=== PATIENT | female | born 1935 | race Caucasian/White ===

== ENCOUNTER 2017-11-11 07:19 | Emergency (ER) | payer MEDICARE, OTHER ==
[~2017-11-11] VITALS: Ht 160 cm; Wt 81.7 kg
[~2017-11-11 07:19] MED LIST: FUROSEMIDE80 MG PO; SYNTHROID200 MCG PO; TRAZODONE HCL50 MG PO
[2017-11-11] MEDS ORDERED: LEVOTHYROXINE150 MCG PO (07:41)
[2017-11-11] MEDS ORDERED: LANSOPRAZOLE30 MG PO (07:41)
[2017-11-11] MEDS ORDERED: POTASSIUM CHLO10 ME2 PO (07:42)
[2017-11-11] MEDS ORDERED: ISOSORBIDE MONO30 MG PO (07:42)
[2017-11-11] MEDS ORDERED: GABAPENTIN100 MG PO (07:43)
[2017-11-11] MEDS ORDERED: ATORVASTATIN CA40 MG PO (07:43)
[2017-11-11] MEDS ORDERED: ASPIR-LOW81 MG PO (07:44)
[2017-11-11] MEDS ORDERED: CIPRO250 MG PO (09:05)
--- NOTE | 2017-11-11 19:17 | EKG ---
[facility] [address] [facility] [place] [address] Signed Normal sinus rhythm Inferior infarct , age undetermined Cannot rule out Anterior infarct , age undetermined Abnormal ECG No previous ECGs available Confirmed by ANDREW MERAZ MD ([id number]) on 11/11/2017 7:17:22 PM Electronically Signed By: ANDREW MERAZ MD 11/11/17 1917 PATIENT NAME: ENMANUELHUDSON Electrocardiogram DATE OF : 37 PHYSICIAN: ANDREW MERAZ MD REPORT #: [id number] REPORT IS CONFIDENTIAL AND NOT TO BE RELEASED WITHOUT AUTHORIZATION
== END 2017-11-11 09:30 | disposition home or self-care (01) ==
LOC: ED 07:19
DX: N39.0 Urinary tract infection, site not specified (principal); E03.9 Hypothyroidism, unspecified; Z90.710 Acquired absence of both cervix and uterus; Z90.49 Acquired absence of other specified parts of digestive tract; Z79.899 Other long term (current) drug therapy
CPT/HCPCS: 70450; 80053; 81001; 84484; 85025; 93005; 93010; 99284

== ENCOUNTER 2017-11-21 11:28 | Emergency (ER) | payer MEDICARE, OTHER ==
[~2017-11-21] VITALS: Ht 160 cm; Wt 81.7 kg
[~2017-11-21 11:28] MED LIST changes: +ASPIR-LOW81 MG PO; +ATORVASTATIN CA40 MG PO; +CIPRO250 MG PO; +GABAPENTIN100 MG PO; +ISOSORBIDE MONO30 MG PO; +LANSOPRAZOLE30 MG PO; +LEVOTHYROXINE150 MCG PO; +POTASSIUM CHLO10 ME2 PO
[2017-11-21] MEDS ORDERED: BACTRIM DS TAB1 EACH PO (11:43)
--- NOTE | 2017-11-23 23:46 | EKG ---
[facility] [address] [facility] [place] [address] Signed Normal sinus rhythm Inferior infarct (cited on or before 11-NOV-2017) Cannot rule out Anterior infarct (cited on or before 11-NOV-2017) Abnormal ECG When compared with ECG of 11-NOV-2017 07:55, No significant change was found Confirmed by ANDREW MERAZ MD ([id number]) on 11/23/2017 11:46:48 PM Electronically Signed By: ANDREW MERAZ MD 11/23/17 2346 PATIENT NAME: HUDSON SINGER Electrocardiogram DATE OF : 37 PHYSICIAN: ANDREW MERAZ MD REPORT #: [id number] REPORT IS CONFIDENTIAL AND NOT TO BE RELEASED WITHOUT AUTHORIZATION
== END 2017-11-21 13:41 | disposition home or self-care (01) ==
LOC: ED 11:28
DX: S43.401A Unspecified sprain of right shoulder joint, initial encounter (principal); S00.31XA Abrasion of nose, initial encounter; E03.9 Hypothyroidism, unspecified; N18.4 Chronic kidney disease, stage 4 (severe); Z90.710 Acquired absence of both cervix and uterus; Z95.5 Presence of coronary angioplasty implant and graft; Z79.899 Other long term (current) drug therapy; Z79.82 Long term (current) use of aspirin; W01.10XA Fall on same level from slipping, tripping and stumbling with subsequent striking against unspecified object, initial encounter
CPT/HCPCS: 80053; 81001; 84484; 85025; 93005; 93010; 99283

== ENCOUNTER 2018-02-04 10:24 | Emergency (ER) | payer MEDICARE, OTHER ==
[~2018-02-04] VITALS: Ht 160 cm; Wt 81.7 kg
[~2018-02-04 10:24] MED LIST changes: +BACTRIM DS TAB1 EACH PO
--- NOTE | 2018-02-04 13:34 | EKG ---
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
[2018-02-04] MEDS ORDERED: OMEPRAZOLE20 MG PO (14:24)
== END 2018-02-04 14:35 | disposition home or self-care (01) ==
LOC: ED 10:24
DX: K21.9 Gastro-esophageal reflux disease without esophagitis (principal); R07.89 Other chest pain; N18.4 Chronic kidney disease, stage 4 (severe); I25.2 Old myocardial infarction; E03.9 Hypothyroidism, unspecified; Z79.899 Other long term (current) drug therapy; Z79.2 Long term (current) use of antibiotics; Z79.82 Long term (current) use of aspirin
CPT/HCPCS: 71046; 80053; 84484; 85025; 93005; 93010; 99284

== ENCOUNTER 2018-05-01 18:25 | Inpatient (IN) | payer MEDICARE, OTHER ==
[~2018-05-01] VITALS: Ht 160 cm; Wt 80.0 kg
[~2018-05-01 18:25] MED LIST changes: +OMEPRAZOLE20 MG PO
[2018-05-01] MEDS ORDERED: AMOXICILLIN500 MG PO (18:37)
[2018-05-01] MEDS ORDERED: ALLOPURINOL100 MG PO (18:38)
--- NOTE | 2018-05-01 20:54 | NUR ---
PT ARRIVED FROM ED VIA STRETCHER AND WAS ABLE TO MOVE OVER TO BED ON HER OWN. SHE IS ALERT AND ORIENTED AND RESPIRATIONS ARE EVEN AND NONLABORED ON RA. HER 1L BOLUS IS INFUSING AND SHE DENIES PAIN AT THIS TIME. IS WITH HER IN THE ROOM. PT WAS ORIENTED TO THE ROOM AND HAS CALL LIGHT WITHIN REACH.
--- NOTE | 2018-05-01 22:17 | NUR ---
PT IS RESTING IN BED WITH EYES CLOSED, RESPIRATIONS ARE EVEN AND NONLABORED. CALL LIGHT IS WITHIN REACH.
--- NOTE | 2018-05-01 23:48 | NUR ---
PT IS RESTING WITH EYES CLOSED, RESPIRATIONS ARE EVEN AND NONLABORED ON RA. CALL LIGHT IS WITHIN REACH.
--- NOTE | 2018-05-02 01:09 | NUR ---
PT IS RESTING WITH EYES CLOSED, RESPIRATIONS ARE EVEN AND NONLABORED. CALL LIGHT IS WITHIN REACH.
--- NOTE | 2018-05-02 02:04 | NUR ---
PT IS RESTING WITH EYES CLOSED. RESPIRATIONS ARE EVEN AND NONLABORED. CALL LIGHT IS WITHIN REACH.
--- NOTE | 2018-05-02 02:25 | NUR ---
WOKE PT TO GET VS AND HAVE HER USE THE RESTROOM. PT DENIES PAIN AND ANY NEEDS AT THIS TIME.
--- NOTE | 2018-05-02 05:15 | NUR ---
PT SLEPT WELL THROUGH THE NIGHT. SHE HAD NO COMPLAINTS OF PAIN. SHE AMBULATES WITH SBA AND FWW TO THE RESTROOM. SHE DID NOT HAVE ANY COMPLAINTS OF FEELING DIZZY WHILE AMBULATING. D5LR IS INFUSING AT 75 MLS/HR AND SHE IS VOIDING QS.
--- NOTE | 2018-05-02 06:52 | NUR ---
HELPED PT TO RESTROOM AND BACK TO BED. PT DENIES FURTHER NEEDS.
--- NOTE | 2018-05-02 07:40 | NUR ---
BEDSIDE REPORT FROM BIANKA HICKS, PT RESTING IN BED EYES CLOSED RR 18 EVEN. NO DISTRESS NOTED. PT APPEARS TO BE SLEEPING
--- NOTE | 2018-05-02 08:04 | NUR ---
PATIENT IN BED, I ASKED HER WHAT SHE WOULD LIKE FOR BREAKFAST, SHE ORDERED SOME TOAST AND A BANANA, PATIENT SAID SHE WOULD WAIT FOR BREAKFAST UNTIL SHE GOT UP.
--- NOTE | 2018-05-02 09:42 | NUR ---
UPDATED ON PT THIS AT THIS TIME. ORTHO V/S, AND LUNG SOUNDS FINE CRACKLES IN BASES AND AUDIBLE WHEEZES IN UPPER AIRWAY AFTER POSITIONED BACK TO BED
--- NOTE | 2018-05-02 09:48 | NUR ---
PT UP AMBULATING IN HALLS WITH PHYSICAL THERAPY AT THIS TIME
--- NOTE | 2018-05-02 09:57 | NUR ---
DAVID WORKED WITH PT
--- NOTE | 2018-05-02 12:14 | EKG ---
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
--- NOTE | 2018-05-02 14:45 | NUR ---
PT RESTING IN BED ALERT. REPORTS NO NEEDS OR CONCERNS AT THIS TIME. GUEST AT BEDSIDE VISITING.
--- NOTE | 2018-05-02 18:20 | NUR ---
PT CONSUMED 75% OF DINNER, REQUEST ASSISTANCE TO GET BACK IN BED. RN ASKED IF PT WOULD LIKE TO USE BATHROOM BEFORE GOING TO BED, PT SAID "NO" NO OTHER REQUEST AT THIS TIME. PT HAS NO COMPLAINTS OF NAUSEA OR PAIN.
--- NOTE | 2018-05-02 18:26 | NUR ---
PT HAS BEEN UP TO SIDE OF BED FOR MEALS. SHE IS ONE PERSON WITH FWW TO AMBULATE, AMBULATED IN HALLS TODAY WITH PHYSICAL THERAPY. ORTHO V/S THIS AM WAS POSITIVE. PT HAS SIGNIFICANT SCATTERED ECCYMOTIC AREAS FROM MULTIPLE FALLS AT HOME. PT CALLS APPROPRIATELY, VOIDS AND IS INCONT, WITH PAD IN UNDERWEAR. IV FLUIDS INFUSING, IV ABX DAILY.
--- NOTE | 2018-05-02 19:10 | NUR ---
IN ROOM FOR REPORT, PT IS AWAKE IN BED. SHE DENIES ANY PAIN OR NEEDS AT THIS TIME. CALL LIGHT IS WITHIN REACH.
--- NOTE | 2018-05-02 20:51 | NUR ---
HELPED PT TO THE RESTROOM AND BACK TO BED, 100 OF URINE WENT IN THE HAT AND URINE ALSO MISSED THE HAT WELL 1 INCONTINENT IN HER PAD. PT DENIES SOB YET HER O2 SAT DROPPED TO ABOUT 83% ON RA. HAD PT USE IS AND CPT WHICH BROUGHT IT UP A LITTLE 85-86%. PLACED PT ON 1LNC WHICH IS KEEPING HER ABOVE 90%. RT STOPPED BY AND ASSESSED HER WELL. PT IS ON 1 LNC AT THIS TIME. LUNGS SOUNDS ARE CLEAR AND DIM IN BASES. PT DENIES FURTHER NEEDS AT THIS TIME. FRESH ICEWATER IS AT BEDSIDE AND CALL LIGHT IS WITHIN REACH.
--- NOTE | 2018-05-02 22:21 | NUR ---
PT IS RESTING WITH EYES CLOSED RESPIRATIONS ARE EVEN AND NONLABORED ON 1LNC AND 94% O2 SAT. CALL LIGHT IS WITHIN REACH.
--- NOTE | 2018-05-02 23:08 | NUR ---
TITRATED O2 DOWN TO 0.5 LNC AND PT'S O2 SAT IS AT 93%, RESPIRATIONS ARE EVEN AND NONLABORED. CALL LIGHT IS WITHIN REACH.
--- NOTE | 2018-05-03 00:55 | NUR ---
PT IS RESTING WITH EYES CLOSED, RESPIRATIONS ARE EVEN AND NONLABORED. CALL LIGHT IS WITHIN REACH.
--- NOTE | 2018-05-03 02:37 | NUR ---
PT IS RESTING WITH EYES CLOSED, RESPIRATIONS ARE EVEN AND NONLABORED. CALL LIGHT IS WITHIN REACH.
--- NOTE | 2018-05-03 02:53 | NUR ---
PT AWOKE COUGHING, ADMINISTERED TESSLON PERRLS. PT HAS AUDIABLE WHEEZE THAT SEEMS TO CLEAR WITH COUGH. PT DENIES NEEDS AT THIS TIME.
--- NOTE | 2018-05-03 05:03 | NUR ---
PT IS RESTING WITH EYES CLOSED, RESPIRATIONS ARE EVEN AND NONLABORED. CALL LIGHT IS WITHIN REACH.
--- NOTE | 2018-05-03 06:26 | NUR ---
ADMINISTERED THYROID MEDICATION AND PT HAS FRESH WATER AT BEDSIDE. PT IS SITTING AT EDGE OF BED AND DENIES NEEDS AT THIS TIME. CALL LIGHT IS WITHIN REACH.
--- NOTE | 2018-05-03 07:00 | NUR ---
PT SITTING UP AT EDGE OF BED. RECIEVED BEDSIDE SHIFT REPORT FROM KURT JEAN. PERSONAL SUPPLIES AND CALL LIGHT IN REACH. PT DENIED NEEDS AT THIS TIME.
--- NOTE | 2018-05-03 08:29 | NUR ---
PT UP TO BATHROOM WITH STANDBY ASSIST USING FWW. VOIDED 300 CC URINE IN HAT. PT THEN TO RECLINER. CALL LIGHT AND PERSONAL SUPPLIES IN REACH, PT DENIES PAIN AT THIS TIME. GAVE AM MEDICATIONS. LINENS CHANGED, AND AM CARE DONE.
--- NOTE | 2018-05-03 09:05 | NUR ---
NOTIFIED DR. MERAZ THAT PT'S BP THIS AM WAS 183/51. RECIEVED NEW ORDER TO D/C IVF. IVF STOPPED, IV SALINE LOCKED. NO FUTHER ORDERS AT THIS TIME.
--- NOTE | 2018-05-03 09:50 | NUR ---
PATIENT UP TO BATHROOM WITH ONE PERSON ASSIST WITH FWW. CHANGED PATIENT'S GOWN. CLEAN MARIKA PAD ON. HANDS AND FACE WASHED ALONG WITH ORAL CARE AT BATHROOM SINK. PATIENT BACK TO BED PER PATIENT REQUEST. CALL BUTTON IN REACH. IN ROOM. PATIENTS LUNCH ORDERED. NO OTHER NEEDS AT THIS TIME.
--- NOTE | 2018-05-03 09:59 | NUR ---
PT ATE 95% OF RICE CRISPIES AND MILK. DENIED WANTING ANYTHING FURTHER TO EAT. PT SITTING UP IN RECLINER. FAMILY AT SIDE. PERSONAL SUPPLIES AND CALL LIGHT IN REACH. PT DENIED NEEDS.
[2018-05-03] MEDS ORDERED: TRAZODONE HCL100 MG PO (11:45)
[2018-05-03] MEDS ORDERED: FUROSEMIDE20 MG PO (11:46)
[2018-05-03] MEDS ORDERED: NITROSTAT0.4 MG SL (12:05)
[2018-05-03] MEDS ORDERED: VITAMIN D31000 UNI1 PO (12:08)
--- NOTE | 2018-05-03 13:37 | NUR ---
PT RESTING IN BED, BY HER SIDE. BOTH ARE VERY FRIENDLY, PT ALERT AND ORIENTED. PT MENTIONED THAT THEIR FLAT SURFACER WAS OUT OF TOWN, BE BACK TOMORROW NIGHT. PT REQUESED PRAYER, WILL CONTINUE TO FOLLOW NEEDED
--- NOTE | 2018-05-03 13:41 | NUR ---
Medications reconciled using pharmacy records and patient interview
--- NOTE | 2018-05-03 14:27 | NUR ---
PT REPORTED THAT SHE WORKED WITH LORI, PHYSICAL THERAPIST. REPORTED THAT SHE AMBULATED IN THE HALLWAYS, AND THAT SHE WENT UP AND DOWN THE STAIRS IN THE THERAPY ROOM. PT NOW IN BED. DENIED NEEDS. PERSONAL SUPPLIES AND CALL LIGHT IN REACH.
--- NOTE | 2018-05-03 14:38 | NUR ---
PT COUGHING, DRY COUGH. PROVIDED TESSLON DEVON PRN. DR. MERAZ IN TO SEE PT, DISCUSSED PLAN OF CARE, PLAN FOR PROBABLE DISCHARGE TO HOME TOMORROW. PT VERBALIZED UNDERSTANDING.
--- NOTE | 2018-05-03 15:36 | NUR ---
AWARE OF PT ELEVATED B/P. HE REPORTS HE TOOK GRADY B/P WITH SYSTOLIC B/P OF 160.
--- NOTE | 2018-05-03 16:38 | NUR ---
PT IN BED, AT SIDE. PT WATCHING TV. PERSONAL SUPPLIES AND CALL LIGHT IN REACH. PT DENIES NEEDS.
--- NOTE | 2018-05-03 18:40 | NUR ---
PT UP WITH 1 PERSON ASSIST WITH FWW. NO C/O DIZZINESS NOTED OR REPORTED. PT HAS HAD ELEVATED BP, DR MERAZ AWARE, PT TO START NORVASC AND LASIX. PT ON RA, HAS COUGH, PRN TESSLON PEARLS GIVEN. LUNGS CTA, DIM IN BASES. BLE EDEMA 2 + PRESENT. PT RECIEVING IV ROCEPHIN DAILY ON NOC SHIFT. APETITE WNL, VOIDING QUANTITY SUFFICIENT. PT C/O NO BM, IMPLEMENTED MIRILAX AND DOCUSATE SENNA FOR BOWEL PROTOCOL. PT TO RECIEVE THESE THIS EVENING. LAST BM 04/29/18. BOWEL TONES ACTIVE X 4. PLAN FOR PT TO DISCHARGE TO HOME POSSIBLY TOMORROW.
--- NOTE | 2018-05-03 19:28 | NUR ---
IN ROOM FOR REPORT, HELPED PT TO RESTROOM, SHE WILL USE CALL LIGHT WHEN DONE.
--- NOTE | 2018-05-03 20:43 | NUR ---
ROUNDED CHARGE. PATIENT IS RESTING IN BED WATCHING TV. PATIENT DENIES ANY COMMNETS, QUESTIONS, OR CONCERNS. PATIENT DENIES ANY NEEDS AT THIS TIME. CALL LIGHT IN REACH.
--- NOTE | 2018-05-03 21:25 | NUR ---
IN ROOM TO ADMINISTER EVENING MEDICATIONS AND ASSESS PT. URINE OUTPUT IS LOWER NOW THAT SHE IS SL. SHE VOIDED 100 TONIGHT PLUS ONE INCONTINENT IN PAD. SHE DENIES PAIN AT THIS TIME. CALL LIGHT IS WITHIN REACH.
--- NOTE | 2018-05-03 21:25 | NUR ---
NOTIFIED DR EMRAZ THAT B12 IS NOT AVAILABLE. HE SAID IT IS OKAY TO WAIT UNTIL PHARMACY CAN FIX IN THE MORNING.
--- NOTE | 2018-05-04 00:16 | NUR ---
PT IS RESTING WITH EYES CLOSED, RESPIRATIONS ARE EVEN AND NONLABORED. CALL LIGHT IS WITHIN REACH.
--- NOTE | 2018-05-04 02:15 | NUR ---
PT CALLED TO USE THE RESTROOM, SHE IS NOW BACK IN BED AND CALL LIGHT IS WITHIN REACH.
--- NOTE | 2018-05-04 04:05 | NUR ---
PT IS RESTING WITH EYES CLOSED, RESPIRATIONS ARE EVEN AND NONLABORED. CALL LIGHT IS WITHIN REACH.
--- NOTE | 2018-05-04 06:22 | NUR ---
IN ROOM TO ADMINISTER MEDS. FRESH WATER AT BEDSIDE AND PT DENIES FURTHER NEEDS.
--- NOTE | 2018-05-04 06:23 | NUR ---
PT HAD DIFFICULTY SLEEPING LAST NIGHT BUT CONTINUES TO REPORT NO LIGHTHEADEDNESS. SHE CONTINUES TO HAVE A COUGH. ORAL INTAKE WAS ENCOURAGED WHILE AWAKE AND SHE IS VOIDING QS URINE. PLAN IS TO DC TODAY AFTER CULTURES RETURN.
--- NOTE | 2018-05-04 07:12 | NUR ---
RECIEVED BEDSIDE REPORT FROM KURT JEAN. PT IN BATHROOM.
--- NOTE | 2018-05-04 08:50 | NUR ---
PT ATE 50% OF BREAKFAST, SAT UP IN CHAIR FOR MEAL. AFTER EATING, PT REQUESTED TO GET INTO BED, TRANSFERED TO BED WITH FWW WITH STANDBY ASSIST. PT CONTINUES TO HAVE A HOARSE COUGH, BUT REMAINS ON RA. ENCOURAGED PT TO DEEP BREATH AND COUGH. PT REPORTED GENERALIZED PAIN, 2/10, BUT DENIED NEED FOR PRN ANALGESIC. PERSONAL SUPPLIES AND CALL LIGHT IN REACH.
[2018-05-04] MEDS ORDERED: CEPHALEXIN500 MG PO (09:41)
[2018-05-04] MEDS ORDERED: BENZONATATE100 MG PO (09:41)
[2018-05-04] MEDS ORDERED: AMLODIPINE BES2.5 MG PO (09:41)
[2018-05-04] MEDS ORDERED: VITAMIN B-121000 MCG PO (09:42)
--- NOTE | 2018-05-05 09:42 | NUR ---
FAXED CHART NOTES TO [facility], INCLUDING FACESHEET, H AND P, DC SUMMARY AND PACKET AND ORDER FOR HOME HEALTH. CALLED AND TALKED WITH [facility] AND SHE STATED THEY HAVE RECIEVED THE ORDER.
== END 2018-05-04 13:00 | disposition home health service (06) | DRG 690 ==
LOC: ED 18:25 → MS 20:41
PROVIDERS: ADMIT Internal Medicine
DX: N30.00 Acute cystitis without hematuria (principal); D61.818 Other pancytopenia; B96.1 Klebsiella pneumoniae [K. pneumoniae] as the cause of diseases classified elsewhere; E86.0 Dehydration; I95.1 Orthostatic hypotension; R29.6 Repeated falls; E53.8 Deficiency of other specified B group vitamins; R05 Cough; I25.10 Atherosclerotic heart disease of native coronary artery without angina pectoris; I12.9 Hypertensive chronic kidney disease with stage 1 through stage 4 chronic kidney disease, or unspecified chronic kidney disease; N18.3 Chronic kidney disease, stage 3 (moderate); E03.9 Hypothyroidism, unspecified; K21.9 Gastro-esophageal reflux disease without esophagitis; F51.04 Psychophysiologic insomnia; M10.9 Gout, unspecified; Z95.5 Presence of coronary angioplasty implant and graft; Z79.899 Other long term (current) drug therapy
CPT/HCPCS: 36415; 71045; 80053; 81001; 82607; 82746; 83540; 83605; 83880; 84466; 84484; 85025; 87077; 87088; 87186; 93005; 93010; 94667; 94668; 97110; 97116; 97161; G8978; G8979; J0696; J7120

== ENCOUNTER 2019-08-30 09:52 | Emergency (ER) | payer MEDICARE, OTHER ==
[~2019-08-30] VITALS: Ht 160 cm; Wt 79.8 kg
[~2019-08-30 09:52] MED LIST changes: +ALLOPURINOL100 MG PO; +AMLODIPINE BES2.5 MG PO; +AMOXICILLIN500 MG PO; +BENZONATATE100 MG PO; +CEPHALEXIN500 MG PO; +FUROSEMIDE20 MG PO; +NITROSTAT0.4 MG SL; +TRAZODONE HCL100 MG PO; +VITAMIN B-121000 MCG PO; +VITAMIN D31000 UNI1 PO
[2019-08-30] MEDS ORDERED: ALDACTAZIDE 251 EACH PO (11:05)
[2019-08-30] MEDS ORDERED: CEFUROXIME250 MG PO (13:01)
== END 2019-08-30 13:33 | disposition home or self-care (01) ==
LOC: ED 09:52
PROC: 0T9B70Z Drainage of Bladder with Drainage Device, Via Natural or Artificial Opening (ICD-10-PCS; principal; 2019-08-30)
DX: N39.0 Urinary tract infection, site not specified (principal); N63.0 Unspecified lump in unspecified breast; E03.9 Hypothyroidism, unspecified; I25.2 Old myocardial infarction; N18.4 Chronic kidney disease, stage 4 (severe); Z95.5 Presence of coronary angioplasty implant and graft; Z90.710 Acquired absence of both cervix and uterus; Z90.49 Acquired absence of other specified parts of digestive tract; Z79.899 Other long term (current) drug therapy
CPT/HCPCS: 51701; 74176; 80053; 81001; 83605; 83690; 85025; 99284-25

== ENCOUNTER 2024-09-24 11:07 | Emergency (ER) | payer MEDICARE, OTHER ==
[~2024-09-24] VITALS: Ht 160 cm; Wt 66.0 kg
[~2024-09-24 11:07] MED LIST changes: +ALDACTAZIDE 251 EACH PO; +CEFUROXIME250 MG PO; +LEVOTHYROXINE100 MCG PO; +METHYLPREDNISOLO4 M1 PO; +NITROGLYCERIN0.4 MG SL; +SPIRONOLACTONE1 EACH PO
[2024-09-24 13:03] VITALS: BP 158/52
== END 2024-09-24 13:03 | disposition home or self-care (01) ==
LOC: ED 11:07
DX: S01.81XA Laceration without foreign body of other part of head, initial encounter (principal); M25.512 Pain in left shoulder; W10.2XXA Fall (on)(from) incline, initial encounter; E03.9 Hypothyroidism, unspecified; N18.4 Chronic kidney disease, stage 4 (severe); I25.2 Old myocardial infarction; F03.90 Unspecified dementia, unspecified severity, without behavioral disturbance, psychotic disturbance, mood disturbance, and anxiety; Z79.890 Hormone replacement therapy; Z79.899 Other long term (current) drug therapy
CPT/HCPCS: 12011; 70450; 73030; 99284-25